=== PATIENT | female | born 1985 | race Caucasian/White ===

== ENCOUNTER → 2023-12-22 | Outpatient (CLI) | payer OTHER ==
[~2023-12-22] MED LIST: DAILY VALUE1 EACH PO; EFFEXOR XR37.5 M2 PO; NORCO 325 MG-51 TA1 PO; NORCO 325 MG-51 TAB PO; PHENERGAN 25 TA25 MG PO; VALIUM 10MG10 MG/TAB PO; VALIUM5 M1 PO; WELLBUTRIN SR150 M2 PO
== END ==
LOC: RAD 10:14
DX: D25.9 Leiomyoma of uterus, unspecified (principal)

== ENCOUNTER → 2024-01-19 | Outpatient (CLI) | payer OTHER | LOC: RAD 09:05 | DX: M25.552 Pain in left hip (principal) ==

== ENCOUNTER → 2024-01-20 | Outpatient (CLI) | payer OTHER ==
[2024-01-20 08:59] LABS: ALBUMIN 4.2 g/dL (3.5-5.0); BASO # 0.03 K/mm3 (0.02-0.10); HEMATOCRIT 42.5 % (37.0-47.0); HEMOGLOBIN 13.6 g/dL (12.5-16.0); LYMPH# 1.18 K/mm3 (1.50-4.00); MEAN CELL VOLUME 92 fl (78-100); MEAN CORPUSCULAR HEMOGLOBIN 29 pg (27-31); MEAN CORPUSCULAR HGB CONC 32 g/dL (33-37); MEAN PLATELET VOLUME 11.7 fl (7.4-10.4); MONO # 0.37 K/mm3 (0.20-0.80); NEU # 4.45 K/mm3 (1.40-6.50); PLATELET COUNT 209 K/mm3 (130-400); RED BLOOD COUNT 4.63 M/mm3 (4.10-5.30)
[2024-01-20 09:02] LABS: TOTAL PROTEIN 6.4 g/dL (6.4-8.3)
[2024-01-20 09:04] LABS: TOTAL BILIRUBIN 0.3 mg/dL (0.2-1.2)
[2024-01-20 09:09] LABS: MAGNESIUM 1.69 mg/dL (1.60-2.60)
[2024-01-20 23:48] LABS: PTH,INTACT 62.9 pg/mL (6.6-88.9)
== END ==
LOC: LAB 08:28
PROVIDERS: Internal Medicine
DX: K90.9 Intestinal malabsorption, unspecified (principal); E78.2 Mixed hyperlipidemia; Z98.84 Bariatric surgery status

== ENCOUNTER → 2024-05-12 | Outpatient (CLI) | payer OTHER | LOC: RAD 08:58 | DX: S62.629A Displaced fracture of middle phalanx of unspecified finger, initial encounter for closed fracture (principal); X58.XXXA Exposure to other specified factors, initial encounter ==